=== PATIENT | female | born 1955 | race Caucasian/White ===

== ENCOUNTER 2016-08-04 07:47 | Inpatient (IN) | payer BC ==
--- NOTE | 2016-08-03 12:37 | HISTORY & PHYSICAL EXAMINATION ---
DATE OF ADMISSION: 08/04/2016 HISTORY OF PRESENT ILLNESS: The patient presents to us with complaint of pain starting in May 2016 with difficulty getting in bed. The pain progressed over the next 48 hours and at that point she went to the [place] [facility] for evaluation. They performed a lumbar CT and gave her a Medrol Dosepak. She followed up with her family physician the following day who then placed her off work for 5 days and gave her some pain medication. Since then her pain has progressed. She feels she is tripping with her right foot and is having a difficult time steps. Pain involves the right groin as well as paresthesias radiating along the right anterolateral thigh and calf to the foot. Left leg is asymptomatic. Sitting, changing positions and standing as well as walking reproduces her pain. She is most comfortable lying flat. She notes urinary hesitancy, but no loss of control. She does have some saddle paresthesias on the right labia. PAST MEDICAL HISTORY: The patient's medical history is significant for diabetes, hypertension, hypercholesterolemia, gallbladder disease, thyroid disease, and anxiety. PAST SURGICAL HISTORY: Significant for total abdominal hysterectomy including bilateral oophorectomy and appendectomy, tonsillectomy, right Bankart procedure. ALLERGIES: INCLUDE SEAFOOD AND SULFA. MEDICATIONS: Include Coreg CR 80 mg at night, gabapentin 300 mg 2 tablets t.i.d., Cozaar 25 mg in the morning, Ambien 5 mg at bedtime, metformin 500 mg twice a day, Lexapro 20 mg in the morning, unknown med in the morning, Tricor 145 mg in the morning, Zetia 10 mg in the morning, Xanax 0.5 mg 1 tablet t.i.d. p.r.n., levothyroxine 100 mcg daily, Norvasc 5 mg daily. SOCIAL HISTORY: She is . 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 Denies alcohol. Denies tobacco. Denies drug use. FAMILY HISTORY: Significant for cardiovascular disease, diabetes, hypertension, high cholesterol, and thyroid disease. REVIEW OF SYSTEMS: Significant for weight loss, itchy skin, anxiety, hesitancy of urine, poor coordination, muscle weakness, and difficulty walking. PHYSICAL EXAMINATION: VITAL SIGNS: 5 foot 5 inches, 182 pounds. HEENT: Speech appropriate. CARDIOPULMONARY: No gross abnormalities. ABDOMEN: Soft, nontender. GENITOURINARY: Deferred. NEUROLOGIC: Cranial nerves II-XII grossly intact. MUSCULOSKELETAL: She has no abnormal skin markings over the thoracolumbar spine. She ambulates with an independent steady gait. Absent ankle clonus. Positive straight leg raise on the right. She has breakaway weakness over the right dorsiflexion and quadricep as well as hamstring. Strength is intact in the left leg. ASSESSMENT: Spondylolisthesis grade 1 L4-L5 and L5-S1; disk herniation L4-L5 on the right. PLAN: At this point in time, she has failed conservative therapy. We have reviewed surgical intervention which would require lumbar decompression with instrumented fusion L4-L5 and L5-S1. Risks, benefits, pros, cons, and alternatives were outlined in detail. She would like to proceed with the above-mentioned surgical planning. ISABELLA
[2016-08-04] VITALS (9 sets, daily range): BP systolic 125–138; BP diastolic 65–85; PULSE 74–90; TEMP 36.5–37.1; O2SAT 95–99; Ht 165.1 cm; Wt 83.2 kg
[~2016-08-04] VITALS: Ht 165.1 cm; Wt 83.2 kg
--- NOTE | 2016-08-04 07:35 | History & Physical Bridge Note ---
H&P Re-Evaluation Bridge Note: I have examined the patient, reviewed the History & Physical and in the interval since the performance of the History & Physical I have noted the following changes of clinical significance: No changes noted
[~2016-08-04 07:47] MED LIST: ALPR-411 PO; AMLO-110 PO; CEFAZOLIN 2000 MG/60 ML D5W IV SCH; CRGSR/40 PO; ESCI1TAB10 PO; EZET10TA63 PO; FENO145T26 PO; GLC500 PO; LACTATED RINGER'S 1000ML 1,000 ML IV SCH; LEVO100T7 PO; LOSA25TA18 PO; VILA1TAB3 PO; ZOLP5TAB PO
[2016-08-04] MEDS ORDERED: EpHEDrine SULFATE INJ 50 MG/ML AMP IV PRN (08:45)
[2016-08-04] MEDS ORDERED: ONDANSETRON INJ 2 MG/ML 2 ML VIAL IV PRN ×2 (08:45→12:00)
[2016-08-04] MEDS ORDERED: LABETALOL HCL IV 5 MG/ML 20ML IV PRN (08:45)
[2016-08-04] MEDS ORDERED: ATROPINE SULFATE 0.1 MG/ML 5ML SYR IV PRN (08:45)
[2016-08-04] MEDS ORDERED: MEPERIDINE HCL 25 MG/ML CARP IV PRN (08:45)
[2016-08-04] MEDS ORDERED: HYDROmorphone INJ 1 MG/ML SYR IV PRN (08:45)
[2016-08-04] MEDS ORDERED: FENTANYL CITRATE INJ 50 MCG/1 ML 2 ML VIAL ONE ×2 (09:01→10:16)
[2016-08-04] MEDS ORDERED: MIDAZOLAM HCL 1 MG/ML 2ML VIAL ONE (09:01)
[2016-08-04] MEDS ORDERED: BACITRACIN 50000 UNIT VIAL ONE (09:26)
[2016-08-04] MEDS ORDERED: SODIUM CHLORIDE 0.9% PF 50 ML VIAL ONE (09:26)
[2016-08-04] MEDS ORDERED: BUPIVACAINE/EPINEPHRINE 0.5% MPF 1:200,000 30 ML VIAL ONE (09:26)
[2016-08-04] MEDS ORDERED: HYDROmorphone INJ 2 MG/ML SYR/VIAL ONE ×2 (10:16→11:47)
[2016-08-04] MEDS ORDERED: PROPOFOL IV EMULSION 10 MG/ML 20 ML VIAL IV ONE (10:50)
[2016-08-04] MEDS ORDERED: ROCURONIUM BROMIDE 10 MG/ML 5 ML VIAL ONE (10:50)
[2016-08-04] MEDS ORDERED: DEXAMETHASONE SOD INJ 4 MG/ML VIAL ONE (10:50)
[2016-08-04] MEDS ORDERED: LIDOCAINE HCL 2% 2 ML VIAL (20MG/ML) ONE (10:50)
[2016-08-04] MEDS ORDERED: FLOSEAL HEMOSTATIC MATRIX 10ML TOP ONE (11:40)
[2016-08-04] MEDS ORDERED: SODIUM CHLORIDE 0.9% 1000ML 1,000 ML IV SCH (11:55)
--- NOTE | 2016-08-04 11:55 | [facility] Post Operative Brief Note ---
Immediate Operative Summary Operative Date Aug 04, 2016. Pre-Operative Diagnosis Spondylolisthesis grade 1 L4-L5 and L5-S1; disk herniation L4-L5 on the right. Post-Operative Diagnosis Spondylolisthesis grade 1 L4-L5 and L5-S1; disk herniation L4-L5 on the right. Procedure(s) Performed tlif Surgeon Dr. Mehta [employer] Collection Clerk Surgeon(s) none Estimated Blood Loss 150 Findings stenosis Specimens none per surgeon
[2016-08-04] MEDS ORDERED: hydrOXYzine HCL 25 MG TAB PO PRN (12:00)
[2016-08-04] MEDS ORDERED: PROMETHAZINE HCL INJ 12.5 MG in SODIUM CHLORIDE 0.9% 50ML 50 ML IV PRN (12:00)
[2016-08-04] MEDS ORDERED: MAGNESIUM HYDROXIDE SUSP 30 ML UDC PO PRN (12:00)
[2016-08-04] MEDS ORDERED: ACETAMINOPHEN IV 100 ML IV PRN (12:00)
[2016-08-04] MEDS ORDERED: NALOXONE HCL 0.4 MG/1 ML VIAL/CARP IV PRN ×2 (12:00)
[2016-08-04] MEDS ORDERED: ALUMINUM/MAGNESIUM SUSP 30 ML UDC PO PRN (12:00)
[2016-08-04] MEDS ORDERED: DO NOT ADMINISTER PNEUMOCOCCAL VACCINE PRN ×2 (12:00)
[2016-08-04] MEDS ORDERED: DO NOT ADMINISTER FLU VACCINE PRN ×3 (12:00)
[2016-08-04] MEDS ORDERED: FAMOTIDINE 20 MG TAB PO PRN (12:00)
[2016-08-04] MEDS ORDERED: ACETAMINOPHEN 500 MG TAB PO PRN (12:00)
[2016-08-04] MEDS ORDERED: ALPRAZOLAM 0.5 MG TAB PO PRN (12:00)
[2016-08-04] MEDS ORDERED: BISACODYL 10 MG SUPP PR PRN (12:00)
[2016-08-04] MEDS ORDERED: LORAZEPAM INJ 0.5 MG in SYRINGE 0.75 ML IV PRN (12:00)
[2016-08-04] MEDS ORDERED: SOD PHOSPHATE/SOD BIPHOSPHATE ENEMA 132 ML BTL PR PRN (12:00)
[2016-08-04] MEDS ORDERED: LORAZEPAM 0.5 MG TAB PO PRN (12:00)
[2016-08-04] MEDS ORDERED: METOCLOPRAMIDE HCL INJ 5 MG/ML 2 ML VIAL IV PRN (12:00)
[2016-08-04] MEDS ORDERED: KETOROLAC TROMETHAMINE 30 MG/ML VIAL ONE (12:08)
[2016-08-04] MEDS ORDERED: GLYCOPYRROLATE INJ 0.2 MG/ML VIAL ONE (12:08)
[2016-08-04] MEDS ORDERED: ONDANSETRON INJ 2 MG/ML 2 ML VIAL ONE (12:08)
[2016-08-04] MEDS ORDERED: NEOSTIGMINE METHYLSULFATE 1 MG/ML 10ML VIAL ONE (12:08)
[2016-08-04] MEDS ORDERED: HYDROmorphone HCL 0.5MG/ML 50 ML CASSETTE ONE (12:09)
--- NOTE | 2016-08-04 12:12 | DIAGNOSTIC IMAGING REPORT ---
INTRAOPERATIVE RADIOGRAPHS CLINICAL HISTORY: L4-S1 spinal fusion. Fluoroscopy time: 25 seconds. FINDINGS: 2 spot fluoroscopic views of lumbar spine are presented. There is evidence of discectomy at L5-S1 with laminectomy and posterior fusion from L4 -S1. Interpedicular screws are present at all levels. The orthopedic hardware appears intact. IMPRESSION: Intraoperative images from L4 -S1 spinal fusion as above. Electronically signed by: Brian Webber M.D. 08/04/2016 12:11 PM Dictated Date/Time: 08/04/2016 12:10 PM
[2016-08-04] MEDS ORDERED: PHARMACY GLYCEMIC MGMT CONSULT PRN (12:14)
--- NOTE | 2016-08-04 12:18 | OPERATIVE REPORT ---
DATE OF OPERATION: 08/04/2016 PREOPERATIVE DIAGNOSES: Spinal stenosis, spondylolisthesis. POSTOPERATIVE DIAGNOSES: Same. PROCEDURE PERFORMED: 1. Lumbar decompression, medial facetectomy, and foraminotomy L3-L4, L4-L5, L5-S1. 2. Posterior spinal fusion L4-5, L5-S1. 3. Placement posterior segmental instrumentation using Orthros rods and screws L4-5, L5-S1. 4. Interbody fusion L5-S1. 5. Placement of PEEK cage 12 x 22 mm at L5-S1. 6. Placement of locally harvested morcellized autograft in posterior gutters. 7. Placement of Infuse collagen sponge combined with Mastergraft in the posterior gutters and Josefa bone grafting in the interbody space. SURGEON: Dr. Boston Mehta. ASSIST: None. ANESTHESIA: General. DISPOSITION: The patient awakened and taken to PACU in stable condition. HISTORY OF PATIENT'S PROBLEMS: This is a 60-year-old female who is well known to me that presents with above-mentioned diagnosis. After failing an extensive course of nonoperative care, elected to undergo the above-mentioned procedure. Risks, benefits, pros, cons, and alternatives were outlined in detail preoperatively. DESCRIPTION OF PROCEDURE: The patient was met preoperatively, the case discussed, and all questions were addressed. At that point, the patient was taken back to operative suite, and after undergoing successful general intubation by the department of anesthesia, was placed in prone position on Taz table atop Fermín frame. All bony prominences were well padded and the eyes were inspected to ensure there was no external pressure placed upon them. At this point, lumbar spine was prepped and draped in normal sterile fashion. Sharp dissection with the assistance of Bovie cautery performed down to and exposing the lamina and transverse processes of L4, L5, and sacral ala bilaterally. From a caudal to cephalad fashion, a complete laminectomy of L5, L4, partial laminectomy of L3 was performed, addressing severe lateral recess foraminal disease. Pedicle screws were then placed in L4, L5, and S1 levels bilaterally with assistance of fluoroscopy and appropriate size rods provisionally placed. Through a transforaminal approach on the right, a complete discectomy of L5-S1 was performed and endplates curetted to subcortical bleeding bone and a 12 x 22 mm PEEK cage filled with Josefa bone grafting tapped into position. The rods were then compressed, locked into final position bilaterally, and transverse processes of L4, L5, and sacral ala burred to subcortical bleeding bone. Infuse collagen sponge combined with Mastergraft and locally harvested morcellized autograft was placed in the posterior gutters, crosslink locked in position, 7 flat REAGAN drain inserted. Incision was closed with 1-0 Vicryl in the fascia, 2-0 Vicryl subcutaneously, 4-0 Monocryl for final skin closure. Steri-Strips and sterile dressing placed. The patient was awakened and taken to PACU in stable condition. I attest to the content of the Intraoperative Record and any orders documented therein. Any exceptio ns are noted below.
[2016-08-04] MEDS: FENTANYL CITRATE INJ 50 MCG/1 ML 2 ML VIAL IV PRN ×2 (12:25→12:30)
[2016-08-04] MEDS: HYDROmorphone HCL 0.5MG/ML 50 ML CASSETTE IV PRN ×2 (12:28→19:21)
[2016-08-04] MEDS ORDERED: DEXTROSE 50% 50 ML SYR IV PRN (12:30)
[2016-08-04] MEDS ORDERED: GLUCOSE 40% GEL 15 GM TUBE PO PRN (12:30)
[2016-08-04] MEDS ORDERED: GLUCOSE 10 TABS/TUBE PO PRN (12:30)
[2016-08-04] MEDS ORDERED: GLUCAGON FOR INJ 1 MG VIAL SQ PRN (12:30)
--- NOTE | 2016-08-04 13:39 | Anesthesiology Progress Note ---
Anesthesia Post Op Note Date & Time Aug 04, 2016 at 13:39 Vital Signs Pain Intensity: 5 Vital Signs Past 12 Hours Date Time Temp Pulse Resp B/P Pulse Ox O2 Delivery O2 Flow Rate FiO2 08/04/16 13:30 88 16 151/73 99 Nasal Cannula 4 08/04/16 13:15 36.6 80 17 141/73 97 Nasal Cannula 4 08/04/16 13:10 89 10 127/64 98 Nasal Cannula 4 08/04/16 13:00 83 13 150/77 97 Nasal Cannula 4 08/04/16 12:50 71 13 151/79 98 Nasal Cannula 4 08/04/16 12:40 81 12 165/73 97 Nasal Cannula 4 08/04/16 12:30 84 14 167/82 100 Nasal Cannula 4 08/04/16 12:20 85 13 143/83 100 Mask 10 08/04/16 12:10 92 13 152/78 99 Mask 10 08/04/16 12:06 36.9 81 16 133/72 98 Mask 10 08/04/16 08:07 36.7 78 18 127/77 98 Room Air Notes Mental Status: alert / awake / arousable, participated in evaluation Pt Amnestic to Procedure: Yes Nausea / Vomiting: adequately controlled Pain: adequately controlled Airway Patency, RR, SpO2: stable & adequate BP & HR: stable & adequate Hydration State: stable & adequate Anesthetic Complications: no major complications apparent
[2016-08-04] MEDS: LACTATED RINGER'S 1000ML 1,000 ML IV SCH (15:00)
--- NOTE | 2016-08-04 15:10 | Pharmacy Progress Note ---
Glycemic Control Intl Consult Date of Service Aug 04, 2016. Scope Glycemic Pharmacist consulted by Dr Mehta on 08/04/16 for glycemic control and to write orders per [facility] inpatient glycemic control protocol Objective Weight (Kilograms): 83.18 Accuchecks BSG (last 24hrs): Test 08/04/16 08:38 08/04/16 12:31 Bedside Glucose 103 mg/dl (70-90) 124 mg/dl (70-90) Recent Pertinent Medications Outpatient Anti-diabetic Regimen: * Metformin 500mg PO BIDM Risk Factors for Insulin Resistance: * Steroids * Recent Surgery * Diet Assessment & Plan ASSESSMENT: * 60yo T2DM female with unknown degree of outpatient control of diabetes as no recent A1c listed in record * Pt is maintained on oral antidiabetic agents as an outpatient * Oral agents are not recommended for inpatient use d/t difficultly titrating in acute situations, drug interactions, & changing PO intake/status * ADA recommends re-initiating outpatient oral agents 1-2 days prior to discharge if/when appropriate if they were held on admission. * Recommended regimen for inpatient use is SQ Basal Bolus insulin regimen with Lantus + NovoLog * Weight based SQ basal bolus insulin dosing per [facility] calculator will be used while oral antidiabetic agents on hold. Will titrate parameters based on BSG trends * Will initiate basal insulin for persistent hyperglycemia (BSG > 180mg/dl) * Patient received dexamethasone preoperatively and will receive 3 doses post- operatively. * Steroids have their most profound effect on post-prandial hyperglycemia which is best controlled with NovoLog dosing per aggressive CF/CR. However, basal insulin with Lantus is sometimes warranted for RTC steroid dosing. * ADA & AACE recommend a goal blood sugar range 140-180 mg/dl for the majority of critically ill & non-critically ill patients. However, more stringent targets may be selected in individual cases. Will utilize more stringent goal of 110-140mg/dl based on patient age & comorbidities. Additionally, tighter glycemic control is warranted to facilitate wound/infection healing post- operatively. PLAN FOR INPATIENT GLYCEMIC CONTROL: * Hold outpatient oral diabetes medications * Will try to re-initiate 1-2 days prior to discharge once renal function assessed and PO intake adequate * Initiate weight based basal insulin with Lantus for persistent hyperglycemia ( BSG > 180mg/dl) * Lantus 10 units SQ HS if BSG 200mg/dl or above * NovoLog per scale ACHS or Q6hrs while NPO * Goal Range: Low 110 mg/dL - High 140 mg/dL * Correction Factor: 25 mg/dL/unit * Nutritional / Prandial insulin per carb ratio of 1 unit per 9 grams CHO consumed * Please note that the plan above was derived based on current level of insulin resistance and hospital stress. These recommendations are appropriate for inpatient admission only. Plan of care upon discharge will need to be reassessed to avoid potential outpatient hypo/hyperglycemia. Thank you.
[2016-08-04] MEDS: INSULIN ASPART 100 UNITS/ML 3 ML PEN SC SCH ×3 (18:03→21:25)
[2016-08-04] MEDS: DEXAMETHASONE INJ 6 MG in SYRINGE 0 ML IV SCH (18:31)
[2016-08-04] MEDS: CEFAZOLIN IV 2,000 MG in DEXTROSE 5% 50ML 50 ML IV SCH (18:31)
[2016-08-04] MEDS: ZOLPIDEM TARTRATE 5 MG TAB PO SCH (21:00)
[2016-08-04] MEDS: INSULIN GLARGINE SOLOSTAR 100 UNITS/ML 3 ML PEN SC SCH (21:00)
[2016-08-04] MEDS: DOCUSATE SODIUM/SENNA 50/8.6MG TAB PO SCH (21:20)
[2016-08-04] MEDS: CARVEDILOL CR 20 MG CAPER PO SCH (21:21)
[2016-08-05] MEDS: LACTATED RINGER'S 1000ML 1,000 ML IV SCH (01:03)
[2016-08-05] MEDS: DEXAMETHASONE INJ 6 MG in SYRINGE 0 ML IV SCH ×2 (02:15→10:34)
[2016-08-05] MEDS: CEFAZOLIN IV 2,000 MG in DEXTROSE 5% 50ML 50 ML IV SCH (02:18)
[2016-08-05 03:31] VITALS: BP 124/70; PULSE 79; TEMP 36.8; O2SAT 97
[2016-08-05] MEDS ORDERED: DC PCA SCH (06:00)
[2016-08-05] MEDS ORDERED: HYDROmorphone INJ 1 MG/ML SYR IV PRN (06:00)
[2016-08-05] MEDS ORDERED: HYDROmorphone INJ 0.5 MG/0.5 ML SYR IV PRN (06:00)
[2016-08-05] MEDS: LEVOTHYROXINE 100 MCG TAB PO SCH (06:02)
[2016-08-05] MEDS ORDERED: NURSING VERBAL MED ORDER ONE (06:15)
[2016-08-05 07:06] VITALS: BP 131/72; PULSE 75; TEMP 37; O2SAT 96
[2016-08-05 07:26] LABS: COMPLETE YES; HEMATOCRIT 30.6 % (37-47); IG% 0.3 %; LYMPH % 4.8 %; LYMPH ABS # 0.47 K/uL (1.2-3.4); MEAN CORPUSCULAR HEMOGLOBIN 29.9 pg (25-34); MEAN CORPUSCULAR HGB CONC 33.7 g/dl (32-36); MEAN PLATELET VOLUME 8.5 fL (7.4-10.4); MONO % 3.8 %; NEUT % 91.1 %; PLATELET COUNT 271 K/uL (130-400); RED BLOOD COUNT 3.44 M/uL (4.2-5.4); WHITE BLOOD COUNT 9.75 K/uL (4.8-10.8)
[2016-08-05 07:42] LABS: ESTIMATED AVERAGE GLUCOSE 131 mg/dl; HA1C FLAG Normal (Normal)
[2016-08-05] MEDS ORDERED: RXC5 PO (07:58)
--- NOTE | 2016-08-05 07:59 | Discharge Instructions ---
Discharge Instructions Date of Service Aug 05, 2016. Admission Reason for Admission: Lumbar Spinal Stenosis L4-5, L5-S1 Discharge Discharge Diagnosis / Problem: stenosis Discharge Goals Goal(s): Improve function Activity Recommendations Activity Limitations: per Instructions/Follow-up section . Instructions / Follow-Up Instructions / Follow-Up ACTIVITY RECOMMENDATIONS: SELF CARE INSTRUCTIONS AFTER THORACIC/LUMBAR FUSIONS 1. You may walk to your tolerance. It is good exercise for your legs and back. Expect some back and intermittent leg aches and pains. 2. You may perform "counter-top" level activities (make a sandwich, yuli with a project, etc.). 3. No bending or lifting of more than 10 pounds or back twisting of any nature (roll like a log when turning in bed). 4. You may ride in a car for 20-30 minutes at a time. No driving until after your first visit with your doctor. 5. Frequent changes of position and restricting sitting to 30 minutes at a time will help limit the amount of back spasms and stiffness you may experience. 6. You may discontinue the use of ambulatory aids (cane, crutches, etc.) once your strength and confidence allow. 7. You may pairer inspector the shower and let water strike your incision when you arrive home at least once daily. Do not take a tub bath, sit in a hot tub or go into a swimming pool until after your first recheck in the office. SPECIAL CARE INSTRUCTIONS: VERY IMPORTANT TO READ AND REVIEW A. Your surgical incision has been closed with a cosmetic suture under the skin that will dissolve in about 6 weeks. In 14 days, you can use a pair of clean scissors and cut the suture that is left outside of the skin at the ends of your incision. 1. The small skin tapes can be removed 7 days after surgery if they have not fallen off by that point. 2. You may keep the wound open to air as much as possible to promote healing after post-op day number 5 unless told otherwise by your doctor. 3. If you think the wound looks like it is becoming infected (redness or worsening drainage) and/or you are experiencing fever, chill or worsening back pain and muscle spasms, contact the office so that we may evaluate you as soon as possible. B. Complications are uncommon, but please contact us if you have any signs or symptoms of: 1. wound infection (fever higher than 102.5 degrees F, redness, separation of wound, drainage, or increasing pain from the incision) 2. blood clots in legs (pain, swelling, redness and warmth in legs) 3. urinary tract infection (fever higher than 102.5 degrees F, burning upon urination or increased frequency of urination) 4. nerve problems (inability to walk on your toes or heels, numbness, loss of bowel or bladder control) 5. any other symptoms that concern you C. Please call the office at if you have any concerns or questions about your operation or recovery. D. No smoking! Smoking drastically decreases the chance of a solid fusion. E. Do not take any anti-inflammatory medications (Indocin, Advil, Motrin, Aspirin, Naprosyn, etc.) as these may inhibit the chance of a solid fusion. Tylenol is okay to take for pain. MANAGING PAIN AFTER SPINAL SURGERY 1. Narcotic medication is intended for short-term use and will be provided for surgical pain. Surgical pain usually lasts for a period of 4-6 weeks. Narcotic medication includes Percocet, Vicodin, Darvocet, Tylenol #3 or Lortab. 2. Longer-term pain is more appropriately treated with non-narcotic medication such as Tylenol ES. 3. Muscle spasm is not appropriately treated with narcotics. Muscle relaxers such as Soma, Flexeril or Skelaxin can be used along with Tylenol ES. 4. Remember that we all live with some "aches and pains". This is not unusual or uncommon after an injury or as we get older. a. Back pain is expected and may include muscle spasms for 4 to 6 weeks after surgery. The pain should gradually improve. If the pain worsens for no apparent reason, please contact the office. b. Intermittent leg pain may also be experienced and should not be concerned about unless it worsens for no apparent reason. If so, please contact the office. 5. We will provide appropriate medication within the normal guidelines of their prescribed use. We will also be very cautious and aware of potential abuse and extended duration of patients' medication needs. a. Pain medications are for your comfort and to assist with sleep and rest so that the tissue can heal. They are not provided in order to return to normal activity and should not be used through the day. To do so or worsening pain at night can result from ongoing tissue damage and development of tolerance to the prescribed medicine. 6. Please allow 2-3 days to process refills. Prescriptions will not be mailed but must be picked up at the office. FOLLOW UP VISIT: Keep your scheduled follow-up appointment. Any questions, please call the office at . Current Hospital Diet Patient's current hospital diet: Diabetes Type 2 Diet Discharge Diet Recommended Diet: Regular Diet Procedures Procedures Performed: L4-L5, L5-S1 Lumbar Decompression/Laminectomy, Discectomy, Placement of Interbody Cage, Pedicle Screw Fixation, Application of Josefa Allograft, and Posteriolateral Gutter Fusion Pending Studies Studies pending at discharge: no Laboratory Results Hemoglobin A1c Test 08/05/16 06:59 Range/Units Estimated Average Glucose 131 mg/dl Hemoglobin A1c 6.2 H 4.5-5.6 % Medical Emergencies . Who to Call and When: Medical Emergencies: If at any time you feel your situation is an emergency, please call 911 immediately. . Non-Emergent Contact Non-Emergency issues call your: Primary Care Provider . "Provider Documentation" section prepared by Boston Mehta. VTE Core Measure Inpt VTE Proph given/why not?: Jessica Herr, SCD's
[2016-08-05 08:04] LABS: BUN/CREATININE RATIO 13.1 (10-20); CREATININE 0.6 mg/dl (0.60-1.20)
[2016-08-05] MEDS: FENOFIBRATE 145 MG TAB PO SCH (08:54)
[2016-08-05] MEDS: EZETIMIBE 10MG TAB PO SCH (08:54)
[2016-08-05] MEDS: ESCITALOPRAM OXALATE 20 MG TAB PO SCH (08:55)
[2016-08-05] MEDS: LOSARTAN POTASSIUM 25 MG TAB PO SCH (08:55)
[2016-08-05] MEDS: AMLODIPINE BESYLATE 5 MG TAB PO SCH (08:55)
[2016-08-05] MEDS: OXYCODONE HCL IR 5 MG TAB (IMMEDIATE RELEASE) PO PRN ×3 (08:56→23:34)
[2016-08-05] MEDS: INSULIN ASPART 100 UNITS/ML 3 ML PEN SC SCH ×4 (08:57→21:00)
[2016-08-05 10:25] VITALS: BP 132/69; PULSE 85; O2SAT 95
--- NOTE | 2016-08-05 10:43 | Anesthesiology Progress Note ---
Anesthesia Post Op Note Date & Time Aug 05, 2016 at 10:43 Vital Signs Pain Intensity: 7.0 Vital Signs Past 12 Hours Date Time Temp Pulse Resp B/P Pulse Ox O2 Delivery O2 Flow Rate FiO2 08/05/16 07:45 Room Air 08/05/16 07:06 37.0 75 16 131/72 96 Room Air 08/05/16 03:31 36.8 79 18 124/70 97 Room Air 08/04/16 23:35 Room Air 08/04/16 23:27 36.5 79 18 138/85 97 Room Air Notes Mental Status: alert / awake / arousable, participated in evaluation Pt Amnestic to Procedure: Yes Nausea / Vomiting: adequately controlled Pain: adequately controlled Airway Patency, RR, SpO2: stable & adequate BP & HR: stable & adequate Hydration State: stable & adequate Anesthetic Complications: no major complications apparent
[2016-08-05 12:25] VITALS: BP 118/70; PULSE 79; TEMP 37.3; O2SAT 93
--- NOTE | 2016-08-05 13:39 | PROGRESS NOTE ---
DATE: 08/05/2016 DATE: 08/05/2016. SUBJECTIVE: Postop day 1. Back pain controlled. Leg pain improved. Vital signs stable. T-max 36.3. REAGAN drained 20 mL. Hematocrit 30.6. OBJECTIVE: On exam, she has good strength to testing, appears comfortable. ASSESSMENT: Status post lumbar decompression and fusion. PLAN: At this time, will continue physical therapy, advance her bowel regimen and hopefully discharge home this weekend.
[2016-08-05 16:05] VITALS: BP 144/75; PULSE 77; TEMP 36.8; O2SAT 93
[2016-08-05] MEDS: INSULIN GLARGINE SOLOSTAR 100 UNITS/ML 3 ML PEN SC SCH (21:00)
[2016-08-05] MEDS: ZOLPIDEM TARTRATE 5 MG TAB PO SCH (21:22)
[2016-08-05] MEDS: CARVEDILOL CR 20 MG CAPER PO SCH (21:53)
[2016-08-05] MEDS: DOCUSATE SODIUM/SENNA 50/8.6MG TAB PO SCH (21:54)
[2016-08-05 23:15] VITALS: BP 143/77; PULSE 71; TEMP 36.9; O2SAT 96
[2016-08-06] MEDS: OXYCODONE HCL IR 5 MG TAB (IMMEDIATE RELEASE) PO PRN ×3 (04:39→16:17)
[2016-08-06] MEDS: LEVOTHYROXINE 100 MCG TAB PO SCH (05:56)
[2016-08-06] MEDS: POLYETHYLENE (MIRALAX) 17 GM PACK PO SCH ×2 (05:56→12:00)
[2016-08-06 07:12] VITALS: BP 130/69; PULSE 74; TEMP 36.5; O2SAT 95
[2016-08-06] MEDS: INSULIN ASPART 100 UNITS/ML 3 ML PEN SC SCH ×2 (09:01→13:12)
[2016-08-06] MEDS: LOSARTAN POTASSIUM 25 MG TAB PO SCH (09:04)
[2016-08-06] MEDS: AMLODIPINE BESYLATE 5 MG TAB PO SCH (09:04)
[2016-08-06] MEDS: ESCITALOPRAM OXALATE 20 MG TAB PO SCH (09:06)
[2016-08-06] MEDS: EZETIMIBE 10MG TAB PO SCH (09:06)
[2016-08-06] MEDS: FENOFIBRATE 145 MG TAB PO SCH (09:06)
[2016-08-06 10:46] VITALS: BP 130/69; PULSE 74; TEMP 36.5; O2SAT 95
--- NOTE | 2016-08-06 13:25 | DISCHARGE SUMMARY ---
PRINCIPAL DIAGNOSIS: Spinal stenosis. HOSPITAL COURSE FOLLOWS: On 08/04/2016 patient underwent lumbar decompression and fusion, tolerated this well and was taken to the orthopedic floor postoperatively. Postop day #1, she was up and ambulatory, progressed nicely, progressed through postop day #2 and subsequently discharged home. Discharge orders and instructions found on the chart for further review.
[2016-08-06] MEDS ORDERED: LORAZEPAM 1 MG TAB PO STA (14:23)
[2016-08-06] MEDS ORDERED: NURSING VERBAL MED ORDER ONE (14:30)
[2016-08-06 15:26] VITALS: BP 111/70; PULSE 77; TEMP 36.9; O2SAT 92
--- NOTE | 2016-08-06 16:01 | Pharmacy Progress Note ---
Glycemic: Assessment & Plan Date of Service Aug 06, 2016. Assessment & Plan Assessment * BSGs ranging 103-133 mg/dl over the past 24hrs. * No basal has been needed - will d/c Lantus * SCr wnl - will resume metformin tonight and eliminate carb ratio starting tomorrow AM Plan * Basal insulin: Discontinue Lantus * Correctional Insulin: Novolog Correction per scale ACHS Goal Range: Low 110 mg/dL - High 140 mg/dL Correction Factor: 25 mg/dL/unit * Prandial insulin: Per carb ratio of 1 unit per 9 grams CHO consumed, then eliminate after HS dose tonight BSGs continue to improve, no changes needed to inpatient regimen at this time. Pharmacy will continue to monitor patient daily and write orders per [facility] inpatient glycemic control protocol. Will likely sign-off tomorrow. Thanks. * Please note that the plan above was derived based on current level of insulin resistance and hospital stress. These recommendations are appropriate for inpatient admission only. Plan of care upon discharge will need to be reassessed to avoid potential outpatient hypo/hyperglycemia.
[2016-08-06] MEDS ORDERED: METFORMIN HCL 500 MG TAB PO SCH (17:45)
[2016-08-07] MEDS ORDERED: INSULIN ASPART 100 UNITS/ML 3 ML PEN SC SCH (08:00)
== END 2016-08-06 16:59 | disposition home or self-care (01) | DRG 460 ==
LOC: ENRESERVTM → ENRESERVDT → C.ACU 07:47 → C.MSN 09:30
PROVIDERS: ADMIT Orthopaedic Surgery Orthopaedic Surgery of the Spine; ATTEND Orthopaedic Surgery Orthopaedic Surgery of the Spine
PROC: 0SG30A1 (ICD-10-PCS; principal; 2016-08-04 09:45)
PROC: 0SG00A1 (ICD-10-PCS; principal; 2016-08-04 09:45)
DX: M48.06 Spinal stenosis, lumbar region (principal); M43.16 Spondylolisthesis, lumbar region; E78.00 Pure hypercholesterolemia, unspecified; E11.9 Type 2 diabetes mellitus without complications; I10 Essential (primary) hypertension; M51.27 Other intervertebral disc displacement, lumbosacral region; Z88.2 Allergy status to sulfonamides